=== PATIENT | female | born 1990 | race Caucasian/White ===

== ENCOUNTER → 2017-06-19 | Outpatient (CLI) | payer OTHER ==
[~2017-06-19] MED LIST: DESVENLAFAXINE50 M3 PO; LARIN FE 1.5-31 EACH PO; LARIN1 EACH PO; VENTOLIN HFA 1818 GM INH
--- NOTE | 2017-06-24 11:17 | 24HR ---
[place] [address] HOLTER MONITOR REPORT Name: KELLI POTTER Room: [facility]#: [id number] Admission: 06/19/17 Attend Phys: Alycia Matthews Discharge: Date of : 89 Date of Service: 06/23/17 1411 Report #: [id number] THIS REPORT FOR: //name// [facility] Test Date: 2017-06-23 Test Time: 14:11:48 Pat Name: KELLI POTTER Department: Room: Gender: F Medical Coding Manager: : 1990 Requested By: Alycia Matthews Order Number: [id number] Luz Elena WATSON: Ervin Segal Interpretive Statements 1. sinus rhythm with sinus tachycardia and sinus bradycardia 2. occasional pac and pvc 3. no diary submitted Electronically Signed On 06-24-2017 11:16:51 PRE PAROLE COUNSELING AIDE by Ervin Segal [email or web address] <ELECTRONICALLY SIGNED> By: Ervin Segal MD, [facility] 06/24/17 1116 1411 1411 Ervin Segal MD, FACC /EPI
== END ==
LOC: M.CRD 13:00
DX: R00.2 Palpitations (principal)

== ENCOUNTER 2018-01-02 11:03 | Emergency (ER) | payer BC ==
[~2018-01-02] VITALS: Ht 170.2 cm; Wt 68.0 kg
[2018-01-02] MEDS ORDERED: LARIN1 EACH PO (11:13)
[2018-01-02 11:30] LABS: ABSOLUTE BASOPHILS 0.1 thou/uL (0.0-0.2); ABSOLUTE EOSINOPHILS 0.1 thou/uL (0.0-0.7); ABSOLUTE MONOCYTES 0.6 thou/uL (0.0-1.2); ABSOLUTE NEUTROPHILS 5.1 thou/uL (1.6-8.1); BASOPHILS 0.6 %; EOSINOPHILS 1.3 %; HEMATOCRIT 46.1 % (37.0-47.0); HEMOGLOBIN 15.5 gm/dL (12.0-15.0); MCH 29.9 pg (26.0-34.0); MCHC 33.6 g/dL (28.0-37.0); MCV 88.9 fL (80.0-100.0); MONOCYTES 7.5 %; MPV 7.9 fl. (7.2-11.1); NUCLEATED RBCS 0 /100WBC; PLATELET COUNT* 253 thou/uL (150-400); POLYS 64.6 %; RBC 5.18 mil/uL (4.20-5.00); WBC 7.8 thou/uL (4.0-11.0)
[2018-01-02 11:41] LABS: CALCIUM 9.2 mg/dL (8.5-10.1); CREATININE 0.9 mg/dL (0.6-1.3); POTASSIUM 3.9 mmol/L (3.5-5.1)
[2018-01-02 11:46] LABS: ALBUMIN 3.8 g/dL (3.4-5.0); TOTAL BILIRUBIN 0.3 mg/dL (<0.1-1.0); TOTAL PROTEIN 7.4 g/dL (6.4-8.2)
[2018-01-02 12:16] LABS: URINE BILIRUBIN NEGATIVE (Negative); URINE BLOOD 3+ (Negative); URINE CLARITY SL CLOUDY; URINE COLOR ORANGE; URINE GLUCOSE-RANDOM NEGATIVE (Negative); URINE KETONES TRACE (Negative); URINE LEUKOCYTES-REFLEX TRACE (Negative); URINE NITRITE-REFLEX NEGATIVE (Negative); URINE PROTEIN 2+ (Negative); URINE SPECIFIC GRAVITY 1.025 (1.005-1.030)
[2018-01-02 12:26] LABS: MUCUS 0-3 Light strn/LPF (None Seen); SQUAMOUS 4-10 Moderate /LPF (0-3); URINE RBC >20 Many /HPF (0-2); URINE WBC-REFLEX 0-5 Rare /HPF (0-5)
[2018-01-02 12:27] LABS: CASTS None Seen /LPF (None Seen); CRYSTALS None Seen /LPF (None Seen)
[2018-01-02 13:25] VITALS: BP 110/77
--- NOTE | 2018-01-02 14:53 | EKG ---
[place] [address] ELECTROCARDIOGRAM REPORT Name: KELLI POTTER Room: [facility]#: [id number] Admission: 01/02/18 Attend Phys: Discharge: 01/02/18 Date of : [birth year] Report #: [id number] THIS REPORT FOR: //name// [facility] ED Test Date: 2018-01-02 Test Time: 11:08:31 Pat Name: KELLI POTTER Department: Room: Gender: F Imaging Specialist: : 1990 Requested By: Brenda Ramsey Order Number: [id number] MD: Ervin Segal Measurements Intervals [place] Rate: 128 P: 79 DC: 168 QRS: 59 QRSD: 74 T: 10 QT: 283 QTc: 413 Interpretive Statements Sinus tachycardia LAE, consider biatrial enlargement Consider anterior infarct No previous ECG available for comparison Electronically Signed On 01-02-2018 14:53:22 CDT by Ervin Segal [email or web address] <ELECTRONICALLY SIGNED> By: Ervin Segal MD, [facility] 01/02/18 1453 1108 1108 Ervin Segal MD, FACC /EPI
[2018-04-24] MEDS ORDERED: LARIN FE 1.5-31 EACH PO (10:48)
[2018-04-24] MEDS ORDERED: DESVENLAFAXINE50 M3 PO (10:49)
[2018-04-24] MEDS ORDERED: VENTOLIN HFA 1818 GM INH (10:50)
== END 2018-01-02 13:25 | disposition home or self-care (01) ==
LOC: M.ERS 11:03
PROVIDERS: Personal Emergency Response Attendant
DX: I47.1 Supraventricular tachycardia (principal)